=== PATIENT | male | born 1955 | race Caucasian/White ===

== ENCOUNTER 2018-07-09 06:11 | Day surgery (SDC) | payer BC ==
[~2018-07-09 06:11] MED LIST: CEFAZOLIN 2 GM/50 ML (PMX) 50 ML IVPB
[2018-07-09] MEDS ORDERED: CEFAZOLIN 1 GM INJ (06:59)
[2018-07-09] MEDS ORDERED: PROPOFOL 20 ML (06:59)
[2018-07-09] MEDS ORDERED: MIDAZOLAM 1 MG/ML 2 ML INJ (06:59)
[2018-07-09] MEDS ORDERED: EPHEDrine SULFATE 50 MG/5 ML SYG IV (07:00)
[2018-07-09] MEDS ORDERED: HYDROmorphONE 1 MG/5 ML IV SYRINGE IV (07:00)
[2018-07-09] MEDS ORDERED: OXYCODONE/ACETAMINOPHEN (5/325) TAB PO (07:00)
[2018-07-09] MEDS ORDERED: DIPHENHYDRAMINE 50 MG INJ IV (07:00)
[2018-07-09] MEDS ORDERED: LABETALOL HCL 20MG INJ IV (07:00)
[2018-07-09] MEDS ORDERED: FENTAnyl 50 MCG/ML VIAL (07:00)
[2018-07-09] MEDS ORDERED: ONDANSETRON 4 MG INJ IV (07:00)
[2018-07-09] MEDS ORDERED: MEPERIDINE 25 MG INJ IV (07:00)
[2018-07-09] MEDS ORDERED: METOCLOPRAMIDE 10 MG INJ IV (07:00)
[2018-07-09] MEDS ORDERED: FENTAnyl 50 MCG/ML VIAL IV ×3 (07:00)
[2018-07-09] MEDS ORDERED: hydrALAzine 20 MG INJ IV (07:00)
[2018-07-09] MEDS: morphine SULFATE/PF (10 MG/10 ML) INJ (07:21)
[2018-07-09] MEDS: EPINEPHrine 1 MG/ML 30 ML INJ IRR (07:22)
[2018-07-09] MEDS ORDERED: KETOROLAC 30 MG INJ (08:39)
[2018-07-09] MEDS ORDERED: METOCLOPRAMIDE 10 MG INJ (08:39)
[2018-07-09] MEDS ORDERED: ONDANSETRON 4 MG INJ (08:39)
[2018-07-09] MEDS ORDERED: METHYLPREDNISOLONE ACET 80 MG/ML 1 ML (08:45)
[2018-07-09] MEDS: HYDROmorphONE 1 MG/5 ML IV SYRINGE IV ×2 (09:12→09:22)
[2018-07-09] MEDS: OXYCODONE/ACETAMINOPHEN (5/325) TAB PO (09:53)
[2018-07-10] MEDS: DEXAMETHASONE 4 MG/ML 1 ML INJ (09:52)
== END 2018-07-09 11:15 | disposition home or self-care (01) ==
LOC: SDS 06:11
DX: S83.241A Other tear of medial meniscus, current injury, right knee, initial encounter (principal); S83.281A Other tear of lateral meniscus, current injury, right knee, initial encounter; M65.9 Synovitis and tenosynovitis, unspecified; I10 Essential (primary) hypertension; X58.XXXA Exposure to other specified factors, initial encounter
CPT/HCPCS: 29880